=== PATIENT | female | born 1980 | race Caucasian/White ===

== ENCOUNTER 2025-02-14 09:26 | Emergency (ER) | payer MEDICARE, MEDICAID ==
[~2025-02-14] VITALS: Ht 170.2 cm; Wt 74.8 kg
[2025-02-14 09:27] VITALS: BP 119/67; TEMP 37.1; O2SAT 100
[2025-02-14 09:31] VITALS: PULSE 102; RESP 14; O2SAT 99
== END 2025-02-14 11:30 | disposition left against medical advice (07) ==
LOC: ER 09:26
DX: N98.9 Complication associated with artificial fertilization, unspecified (principal); Z79.899 Other long term (current) drug therapy
CPT/HCPCS: 99281; 99282

== ENCOUNTER 2025-08-01 20:42 | Emergency (ER) | payer MEDICARE, MEDICAID ==
[~2025-08-01] VITALS: Ht 167.6 cm; Wt 55.0 kg
[2025-08-01 20:48] VITALS: BP 105/73; PULSE 86; RESP 18; TEMP 98.4; O2SAT 95
[2025-08-01] MEDS ORDERED: PENICILLIN G BENZATHINE 1,200,000 UNITS/2ML SYR IM ONE (21:15)
[2025-08-01] MEDS: PENICILLIN G BENZATHINE 2,400,000 UNITS/4ML SYR IM NR (21:45)
== END 2025-08-01 23:16 ==
LOC: ER 20:42
DX: A53.0 Latent syphilis, unspecified as early or late (principal); F20.9 Schizophrenia, unspecified
CPT/HCPCS: 99283; 96372; J0561